=== PATIENT | male | born 1995 | race Caucasian/White ===

== ENCOUNTER 2024-12-16 14:52 | Emergency (ER) | payer OTHER ==
--- NOTE | 2024-12-16 16:34 | RAD REPORT ---
EXAMINATION: CT ABDOMEN AND PELVIS WITHOUT CONTRAST CLINICAL INDICATION: Abdominal pain TECHNIQUE: CT abdomen and pelvis was performed, as per department protocol. IV contrast and oral was not administered.Axial, sagittal and coronal reconstructions were obtained. One or more of the following dose reduction techniques were used: Automated exposure control, adjustment of the mA and/o r kV according to the patient size, and/or iterative reconstruction. Unless otherwise specified, incidental findings do not require dedicated imaging follow-up. [id number]. COMPARISON: No prior exam. FINDINGS: The lack of intravenous and oral contrast limits evaluation of solid organs, vessels and bowel. The liver, spleen, pancreas, adrenals and kidneys appear grossly normal No evidence of diverticulitis Normal appendix. Small focal hernia IMPRESSION: No acute abnormality displayed
--- NOTE | 2024-12-16 16:36 | EDPHYS ---
Physician Documentation [facility] Name: Juan Decker Age: 29 yrs Sex: Male : 1995 Arrival Date: 12/16/2024 Time: 14:52 Bed DX5 Private MD: ED Physician Tyree Montenegro HPI: 12/16 15:56 This 29 yrs old Male presents to ER via Ambulatory with complaints of ec2 Abdominal Pain. 15:56 Patient arrives today for evaluation of abdominal pain ongoing for 1 month. Patient ec2 reports that he has been experiencing issues with constipation as well as abdominal cramping. Some occasional nausea, no vomiting, no diarrheal issues. Patient reports no urinary complaints.. Historical: - Allergies: 15:44 No Known Allergies; iw - PMHx: 15:44 Hypertensive disorder; Depressive disorder; Anxiety; iw - PSHx: 15:44 None; iw - Immunization history:: Adult Immunizations not up to date. - Infectious Disease History:: Denies. - Social history:: Smoking status: Patient denies any tobacco usage or history of. ROS: 15:57 Constitutional: as per hpi ec2 Exam: 15:57 Constitutional: GEN: NAD Head: atraumatic Eyes: EOMI Ears: External ears are ec2 normal. CV: regular rate LUNGS: no respiratory distress ABD: non-distended, obese, soft, nontender, no guarding SKIN: no evidence of rashes MSK: no evidence of trauma Vital Signs: 15:42 BP 157 / 99; Pulse 95; Resp 16; Temp 97.5; Pulse Ox 97% on R/A; Weight 147.42 kg; iw Height 6 ft. 3 in. ; 15:42 Body Mass Index 40.62 (147.42 kg, 190.5 cm) iw MDM: 15:56 Medical Screening Exam initiated ec2 15:57 Data reviewed: vital signs, nurses notes. ED course: Patient arrives today for 1 month ec2 of abdominal pain with associated constipation. Examination is revealing for abdominal findings as above. Will obtain CT scan of the abdomen pelvis. Suspect constipation, possible functional component to it, doubt obstruction, possible ileus.. 16:35 ED course: CT on pelvis shows no acute intra-abdominal process. Will discharge home and ec2 instructed follow-up with GI. Return precautions given.. 12/16 15:55 Order name: CT Abd/Pelvis - Without Contrast; Complete Time: 16:35 ec2 Administered Medications: No medications were administered Disposition Summary: 12/16/24 16:35 Discharge Ordered Notes: Location: Home ec2 Condition: Stable ec2 Diagnosis - Abdominal pain, Generalized ec2 - Constipation, unspecified ec2 Followup: ec2 - With: Serge Mayer MD - When: - Reason: Recheck today's complaints Discharge Instructions: - Discharge Summary Sheet ec2 - Abdominal Pain, Adult ec2 - Constipation, Adult ec2 Forms: - Medication Reconciliation Form ec2 - Antibiotic Education ec2 - Prescription Opioid Use ec2 - Patient Portal Instructions ec2 - Leadership Thank You Letter ec2 Prescriptions: - Lactulose 10 gram/15 mL Oral Solution - take 30 milliliters ORAL route once daily; 300 milliliter; Refills: 0, Product ec2 Selection Permitted Signatures: Dispatcher [employer] Maranda Duran RN RN iw Corral, Edwin, MD MD ec2
--- NOTE | 2024-12-16 16:36 | ER ---
Nurse's Notes [facility] Name: Juan Decker Age: 29 yrs Sex: Male : 1995 Arrival Date: 12/16/2024 Time: 14:52 Bed DX5 Private MD: Diagnosis: Abdominal pain, Generalized;Constipation, unspecified Presentation: 12/16 15:37 Chief complaint: Patient states: abd pain for 3 weeks , has been dealing with iw constipation and his provider told him he might need a CT, has is also concerned about a hernia. 15:42 Coronavirus screen: At this time, the client does not indicate any symptoms associated iw with coronavirus-19. Ebola Screen: No symptoms or risks identified at this time. Initial Sepsis Screen: Does the patient meet any 2 criteria? No. Patient's initial sepsis screen is negative. Does the patient have a suspected source of infection? No. Patient's initial sepsis screen is negative. Risk Assessment: Do you want to hurt yourself or someone else? Patient reports no desire to harm self or others. Onset of symptoms was November 27, 2024. 15:42 Method Of Arrival: Ambulatory iw 15:42 Acuity: JANAE 3 iw Historical: - Allergies: 15:44 No Known Allergies; iw - PMHx: 15:44 Hypertensive disorder; Depressive disorder; Anxiety; iw - PSHx: 15:44 None; iw - Immunization history:: Adult Immunizations not up to date. - Infectious Disease History:: Denies. - Social history:: Smoking status: Patient denies any tobacco usage or history of. Assessment: 18:10 Reassessment: Patient is alert, oriented x 3, equal unlabored respirations, skin aa5 warm/dry/pink. Vital Signs: 15:42 BP 157 / 99; Pulse 95; Resp 16; Temp 97.5; Pulse Ox 97% on R/A; Weight 147.42 kg; iw Height 6 ft. 3 in. ; 15:42 Body Mass Index 40.62 (147.42 kg, 190.5 cm) iw ED Course: 14:56 Patient arrived in ED. al6 14:58 Tyree Montenegro MD is Attending Physician. ec2 15:44 Triage completed. iw 16:13 CT Abd/Pelvis - Without Contrast In Process Unspecified. EDMS 16:35 Serge Mayer MD is Referral Physician. ec2 18:10 No provider procedures requiring assistance completed. Patient did not have IV access aa5 during this emergency room visit. Administered Medications: No medications were administered Outcome: 16:35 Discharge ordered by MD. ec2 18:10 Discharged to home ambulatory, aa5 18:10 Condition: stable 18:10 Discharge instructions given to patient, Instructed on discharge instructions, follow up and referral plans. medication usage, Demonstrated understanding of instructions, follow-up care, medications, Prescriptions given X 1, 18:11 Patient left the ED. aa5 Signatures: Dispatcher [employer] EDMaranda Taylor RN RN iw Peyton Galindo RN RN aa5 Tyree Montenegro MD MD ec2 Priscila Elizabeth6 Corrections: (The following items were deleted from the chart) 15:44 15:37 Chief complaint: Patient states: abd pain for 3 weeks lul mccarty
== END 2024-12-16 18:11 | disposition home or self-care (01) ==
LOC: ER 14:52
DX: K59.00 Constipation, unspecified (principal)
CPT/HCPCS: 74176; 99283